=== PATIENT | male | born 1955 | race Caucasian/White ===

== ENCOUNTER 2022-12-12 20:36 | Emergency (ER) | payer OTHER ==
[~2022-12-12] VITALS: Ht 177.8 cm; Wt 78.0 kg
[2022-12-12] MEDS ORDERED: PANTOPRAZOLE SO40 M2 PO (21:16)
[2022-12-12] MEDS ORDERED: OXCARBAZEPINE300 MG (21:16)
== END 2022-12-13 04:38 ==
LOC: ER 20:36
DX: G40.909 Epilepsy, unspecified, not intractable, without status epilepticus (principal); Z88.8 Allergy status to other drugs, medicaments and biological substances; K21.9 Gastro-esophageal reflux disease without esophagitis